=== PATIENT | male | born 1955 | race African-American/Black ===

== ENCOUNTER 2017-02-20 10:28 | Emergency (ER) | payer OTHER ==
[2017-02-20] MEDS ORDERED: HYDROcodone/Acetaminophen 10/325 mg Tablet ONE (10:48)
== END 2017-02-20 11:04 | disposition home or self-care (01) ==
LOC: BURERS 10:28
DX: M54.5 Low back pain (principal); Z86.73 Personal history of transient ischemic attack (TIA), and cerebral infarction without residual deficits
CPT/HCPCS: 99283

== ENCOUNTER 2018-02-07 21:44 | Emergency (ER) | payer OTHER ==
[2018-02-07] MEDS ORDERED: Amoxicillin 125 mg/5 ml Oral Suspension ONE (22:03)
[2018-02-07] MEDS ORDERED: HYDROcodone/Acetaminophen 5/325 mg Tablet ONE (22:03)
[2018-02-07] MEDS ORDERED: Ibuprofen 200 MG TAB ONE (22:03)
[2018-02-07] MEDS ORDERED: AMOXicillin 250 MG CAP ONE (22:03)
== END 2018-02-07 22:09 | disposition home or self-care (01) ==
LOC: BURERS 21:44
DX: K02.9 Dental caries, unspecified (principal); K03.81 Cracked tooth; Z86.73 Personal history of transient ischemic attack (TIA), and cerebral infarction without residual deficits
CPT/HCPCS: 99283

== ENCOUNTER 2018-11-06 00:17 | Emergency (ER) | payer OTHER ==
[2018-11-06] MEDS ORDERED: AMOXicillin 250 MG CAP ONE (00:30)
[2018-11-06] MEDS ORDERED: Ibuprofen 200 MG TAB ONE (00:30)
== END 2018-11-06 00:55 | disposition home or self-care (01) ==
LOC: BURERS 00:17
DX: K04.7 Periapical abscess without sinus (principal); Z86.73 Personal history of transient ischemic attack (TIA), and cerebral infarction without residual deficits
CPT/HCPCS: 99282

== ENCOUNTER 2019-02-17 05:50 | Emergency (ER) | payer OTHER ==
[2019-02-17] MEDS ORDERED: Ketorolac Tromethamine 30 MG/ML VIAL ONE (06:32)
[2019-02-17] MEDS ORDERED: Ondansetron PF 4 MG/2 ML Vial ONE (06:32)
[2019-02-17 06:34] LABS: #Eosinphils 0.1 thou/uL (0.0-0.7); #Lymphocytes 1.2 thou/uL (1.20-3.40); #Monocytes 0.6 thou/uL (0.11-0.59); #Neutrophils 7.6 thou/uL (1.40-6.50); %Basophils 0.5 % (0.0-1.0); %Eosinophils 1.1 % (0.0-10.0); %Lymphocytes 12.4 % (21.0-51.0); %Monocytes 5.8 % (0.0-10.0); %Neutrophils 80.2 % (42.0-75.0); Hemoglobin 14.5 g/dL (14.0-18.0); Mean Corpuscular Hemoglobin 26.8 pg (27.0-31.0); Mean Corpuscular Volume 86.6 fL (78.0-98.0); Mean Platelet Volume 9.1 fL (7.4-10.4); Platelet Count 164 thou/uL (130-400); RBC Distribution Width 12.2 % (11.5-14.5); Red Blood Cell (RBC) Count 5.39 mill/uL (4.70-6.10); White Blood Cell (WBC) Count 9.5 thou/uL (4.8-10.8)
[2019-02-17 06:40] LABS: Bilirubin Negative (Negative); Blood, Urine Negative (Negative); Clarity Turbid (Clear); Glucose, Urine (Dipstick) Negative (Negative); Leukocyte Negative (Negative); Nitrite Negative (Negative); Protein, Urine (Dipstick) 30 mg/dL (Neg-Trace); Specific Gravity, Urine 1.015 (1.005-1.030); pH, Urine 8.5 (5.0-9.0)
[2019-02-17 06:42] LABS: Bacteria/HPF 1+ HPF (None Seen); RBC/HPF 0-3 HPF (0-3); Squamous Epithelial 0-3 HPF (0-3); WBC/HPF 0-3 HPF (0-3)
[2019-02-17 06:43] LABS: Crystals/HPF 4+ AMORPH PHOS HPF (Negative)
[2019-02-17 06:52] LABS: ALT (SGPT) 33 U/L (8-55); AST (SGOT) 35 U/L (5-34); Albumin 4.3 g/dL (3.4-4.8); Alkaline Phosphatase 70 U/L (40-150); Anion Gap 14 mmol/L (10-20); BUN (Urea Nitrogen) 13 mg/dL (8.4-25.7); Bilirubin, Total 0.4 mg/dL (0.2-1.2); Calc. Creatinine Clearance 0 mL/min (70-130); Calcium 10.3 mg/dL (7.8-10.44); Carbon Dioxide 30 mmol/L (23-31); Chloride 102 mmol/L (98-107); Estimated GFR-MDRD Greater than 90; Globulin 3.6 g/dL (2.4-3.5); Glucose 129 mg/dL (80-115); Lipase 10 U/L (8-78); Potassium 3.5 mmol/L (3.5-5.1); Protein, Total 7.9 g/dL (5.8-8.1); Sodium 142 mmol/L (136-145)
[2019-02-17] MEDS ORDERED: Pantoprazole 40 MG VIAL ONE (07:26)
--- NOTE | 2019-02-17 17:11 | CT ---
PRELIMINARY REPORT/[facility]/EMERGENTY AFTER-HOURS PROCEDURE CT Abdomen and Pelvis With Contrast EXAM DATE/TIME: 02/17/2019 7:05 AM CLINICAL HISTORY: 63 years old, male; Pain and signs and symptoms and condition or disease; Complications not specified ; Abdominal tenderness and bloating and nausea and vomiting; Abdominal pain; Prior surgery; Surgery d ate: 3-7 days post-operative; Surgery type: Hernia repair, post op; Patient HX: N/v x 4 times, lower abd pain post op, no bowel movement. TECHNIQUE: Imaging protocol: Axial computed tomography images of the abdomen and pelvis with intravenous contras t. Coronal and sagittal reformatted images were created and reviewed. Radiation optimization: All CT scans at this facility use at least one of these dose optimization katelyn hniques: automated exposure control; mA and/or kV adjustment per patient size (includes targeted exam s where dose is matched to clinical indication); or iterative reconstruction. Contrast material: ISO 370; Contrast volume: 100 ml; Contrast route: IV; COMPARISON: No relevant prior studies available. FINDINGS: Lungs: There is subpleural atelectasis of the dependent portions of the lungs. ABDOMEN: Liver: There is a hyperdense lesion within the liver within segment 4 measuring approximately 1.6 cm possibly representing a flash filling hemangioma. There is an indeterminate focus of hypoattenuation within the liver adjacent to the gallbladder measuring up to 1.2 cm. Gallbladder and bile ducts: Gallbladder is normal. There is no evidence of biliary ductal dilation. Pancreas: The pancreas appears normal. No ductal dilatation. Spleen: The spleen is normal. Adrenals: Normal. No mass. Kidneys and ureters: The kidneys appear normal. No hydronephrosis. Stomach and bowel: The stomach is normal. The duodenum is unremarkable. There is dilatation of the small bowel measuring up to 2.7 cm with abrupt collapse in the RIGHT lower quadrant consistent wi th small bowel obstruction. The colon is normal. Appendix: A normal appendix is identified. PELVIS: Bladder: There is nonspecific bladder wall thickening. This may be related to incomplete distention. Reproductive: The prostate gland and seminal vesicles are normal. ABDOMEN and PELVIS: Intraperitoneal space: Normal. No free air. No significant fluid collection. Bones/joints: No acute fracture. No dislocation. Mild lumbar spine degenerative changes are noted. Soft tissues: Patient is post hernia repair with typical postoperative changes including foci of airN within the inguinal canals. Vasculature: Normal. No abdominal aortic aneurysm. Lymph nodes: Normal. No enlarged lymph nodes. IMPRESSION: 1. There is dilatation of the small bowel measuring up to 2.7 cm in diameter with abrupt collapse in the RIGHT lower quadrant consistent with small bowel obstruction. 2. Indeterminate liver lesions as above. Comparison with prior imaging if available is advised. These may simply represent a liver hemangiomata however other etiologies are possible. Followup or further evaluation for this finding at local radiologist's discretion. Thank you for allowing us to participate in the care of your patient. Dictated and Authenticated by: Alvin Borja MD 02/17/2019 7:32 AM Central Time ([place] & [place]) FINAL REPORT: CT ABDOMEN AND PELVIS WITH CONTRAST: Date: 02-17-[address] of the abdomen and pelvis was performed for evaluation of abdominal pain. There has been a recent repair of inguinal hernias, particularly on the right side. FINDINGS: The lung bases are clear except for some dependent atelectasis. The liver and spleen are both normal in size. As on a 01-26-19 study done at [facility], a hyperdense enhancing lesion of the medial ri ght lobe anteriorly. This is most likely a hemangioma, but a dedicated study using a hemangioma ne col would be needed to be certain. The appearance and size has not changed in the interval. The pancr eas, gallbladder, adrenal glands, kidneys, and abdominal aorta showed no acute findings. The major finding on this study are dilated loops of small bowel, some as wide as 3 cm. They are flui d filled. Dilation abruptly transitions to a normal size in the ileum in the right lower quadrant. Th ere is no dilation of terminal ileum or colon. The findings suggest a small bowel obstruction. Swelling and some air is seen in the right inguinal canal from the recent surgery. There is a trace o f air in the left inguinal canal but no swelling here. The pelvis shows no inflammatory changes, free fluid, or masses. IMPRESSION: 1. Findings consistent with a mid to distal small bowel obstruction with a transition point occurring in the right lower quadrant prior to the terminal ileum. 2. Post-operative changes in each inguinal canal, particularly the right, which shows some swelling, in addition to expected post-operative air. 3. Small enhancing lesion of the medial right lobe of the liver, very similar to the prior study. A h emangioma is very likely, but other studies would be needed for confirmation. Report in agreement with preliminary reading by [facility]. POS: HOME
== END 2019-02-17 08:22 | disposition short-term general hospital (02) ==
LOC: BURERS 05:50
DX: K56.609 Unspecified intestinal obstruction, unspecified as to partial versus complete obstruction (principal); R11.2 Nausea with vomiting, unspecified; Z86.73 Personal history of transient ischemic attack (TIA), and cerebral infarction without residual deficits; Z98.890 Other specified postprocedural states
CPT/HCPCS: 74177; 80053; 81003; 81015; 83690; 84484; 85025; 93005; 96361; 96374; 96375; C9113; J1885; J2405

== ENCOUNTER 2022-01-21 17:52 | Emergency (ER) | payer OTHER ==
[2022-01-21] MEDS ORDERED: Iopamidol 370 76% 100 ML VIAL FS ONE (17:53)
[2022-01-21 18:49] LABS: ALT (SGPT) 12 U/L (8-55); AST (SGOT) 12 U/L (5-34); Albumin 3.5 g/dL (3.4-4.8); Alkaline Phosphatase 83 U/L (40-110); Anion Gap 15 mmol/L (10-20); BUN (Urea Nitrogen) 15 mg/dL (8.4-25.7); Bilirubin, Total 0.5 mg/dL (0.2-1.2); Calc. Creatinine Clearance 0 mL/min (70-130); Calcium 9.2 mg/dL (7.8-10.44); Carbon Dioxide 24 mmol/L (23-31); Chloride 103 mmol/L (98-107); Globulin 3.4 g/dL (2.4-3.5); Glucose 87 mg/dL (80-115); Potassium 4.2 mmol/L (3.5-5.1); Protein, Total 6.9 g/dL (5.8-8.1); Sodium 138 mmol/L (136-145)
[2022-01-21 18:52] LABS: #Basophils 0.1 thou/uL (0.0-0.2); #Eosinphils 0.5 thou/uL (0.0-0.7); #Lymphocytes 1.6 thou/uL (1.20-3.40); #Monocytes 0.9 thou/uL (0.11-0.59); #Neutrophils 6.1 thou/uL (1.40-6.50); %Basophils 1.2 % (0.0-1.0); %Eosinophils 5.6 % (0.0-10.0); %Lymphocytes 17.3 % (21.0-51.0); %Monocytes 9.6 % (0.0-10.0); %Neutrophils 66.4 % (42.0-75.0); Hemoglobin 16.9 g/dL (14.0-18.0); Mean Corpuscular HGB CONC 32.3 g/dL (32.0-36.0); Mean Corpuscular Volume 92.9 fL (78.0-98.0); Mean Platelet Volume 7.8 fL (7.4-10.4); Platelet Count 236 thou/uL (130-400); RBC Distribution Width 12.7 % (11.5-14.5); Red Blood Cell (RBC) Count 5.63 mill/uL (4.70-6.10); White Blood Cell (WBC) Count 9.2 thou/uL (4.8-10.8)
== END 2022-01-21 21:19 | disposition home or self-care (01) ==
LOC: BURERS 17:52
DX: L04.0 Acute lymphadenitis of face, head and neck (principal); F17.210 Nicotine dependence, cigarettes, uncomplicated; Z86.73 Personal history of transient ischemic attack (TIA), and cerebral infarction without residual deficits
CPT/HCPCS: 70491; 71260; 80053; 85025; Q9967